=== PATIENT | female | born 1945 | race Hispanic/Latino ===

== ENCOUNTER 2016-11-24 10:22 | Outpatient (CLI) | payer MEDICARE, OTHER ==
--- NOTE | 2016-11-24 11:51 | Fluoroscopy Report ---
Double contrast barium swallow: Prior neck surgeries. Chronic complaint of food sensation in the lower cervical region. A double contrast exam of the thoracic esophagus shows no significant contour deformity or intraluminal filling abnormality. Imaging of swallowing through the cervical region demonstrates a mild posterior indentation on the esophagus at C5. In the upright position there is a slight delay in complete emptying of the thoracic esophagus. A 13 mm tablet passed readily through the cervical and proximal thoracic esophagus. It caught in the distal esophagus and remained there despite numerous additional swallows with water and heavy barium. The patient however did not indicate cervical or thoracic symptoms related to the stoppage. No obvious reflux occurred with water swallowing in the supine position. The patient could not tolerate prone positioning. No obvious hiatus hernia however identified. Impressions: 1. No significant pathology in the cervical region. Unremarkable swallowing mechanism. 2. Apparent narrowing of esophagogastric junction with occlusion of a 13 mm tablet. The lack of symptoms on this exam may be related to the patient's history of not observing symptoms until several swallows of food have occurred. This may result in significant backup of food in the esophagus.
== END 2016-11-24 10:23 | disposition home or self-care (01) ==
LOC: FLUORO 10:22
PROVIDERS: ATTEND Internal Medicine Gastroenterology
DX: R13.10 Dysphagia, unspecified (principal)
CPT/HCPCS: 74220